=== PATIENT | female | born 1975 | race Caucasian/White ===

== ENCOUNTER 2017-10-19 04:39 | Emergency (ER) | payer BC, SELFPAY ==
[~2017-10-19] VITALS: Ht 152.4 cm; Wt 40.3 kg
[2017-10-19] MEDS ORDERED: MAALOX/HYOSCYAMINE/LIDOCAINE 45 ML BTL PO ONE (05:30)
[2017-10-19] MEDS ORDERED: SODIUM CHLORIDE FLUSH 10ML SYR IVF ONE (05:30)
[2017-10-19] MEDS ORDERED: SODIUM CHLORIDE 0.9% 1,000ML IVBOLUS ONE (05:30)
[2017-10-19] MEDS ORDERED: ONDANSETRON ODT 4 MG PO ONE (05:30)
[2017-10-19] MEDS ORDERED: FAMOTIDINE 20 MG/2 ML IVPush ONE (05:30)
[2017-10-19 06:00] LABS: ALBUMIN 3.9 g/dL (3.4-5.0); ANION GAP 4 mmol/L (5-15); CALCIUM 8.9 mg/dL (8.5-10.1); CHLORIDE 110 mmol/L (98-107); CREATININE 0.77 mg/dL (0.55-1.02)
[2017-10-19 06:08] LABS: BASOPHILS # (AUTO) 0.02 x10^3/uL (0-0.1); BASOPHILS % (AUTO) 0 % (0-1); EOSINOPHILS # (AUTO) 0.12 x10^3/uL (0-0.4); EOSINOPHILS % (AUTO) 1 % (1-7); LYMPHOCYTES # (AUTO) 1.09 x10^3/uL (1-3.4); LYMPHOCYTES % (AUTO) 10 % (22-44); MD NO; MEAN CORPUSCULAR HEMOGLOBIN 31.1 pg (27.0-34.8); MEAN CORPUSCULAR HGB CONC 33.5 g/dL (32.4-35.8); MEAN CORPUSCULAR VOLUME 92.8 fL (80-100); MEAN PLATELET VOLUME 11.3 fL (7.4-10.4); MONOCYTES # (AUTO) 0.83 x10^3/uL (0.2-0.8); MONOCYTES % (AUTO) 8 % (2-9); NEUTROPHILS # (AUTO) 8.47 x10^3/uL (1.8-6.8); NEUTROPHILS % (AUTO) 81 % (42-75); PLATELET COUNT 178 x10^3/uL (130-400); RED CELL DISTRIBUTION WIDTH 13.5 % (9.6-15.2)
[2017-10-19] MEDS ORDERED: ONDANSETRON ODT 4 MG ONE (06:09)
[2017-10-19] MEDS ORDERED: FAMOTIDINE 20 MG/2 ML ONE (06:09)
[2017-10-19] MEDS ORDERED: MAALOX/HYOSCYAMINE/LIDOCAINE 45 ML BTL ONE (06:09)
[2017-10-19 07:59] LABS: MICROSCOPIC INDICATED
[2017-10-19 08:07] VITALS: BP 108/62
[2017-10-19 08:10] LABS: CULTURE INDICATED? NO
== END 2017-10-19 08:09 | disposition home or self-care (01) ==
LOC: ED 08:05
DX: N94.4 Primary dysmenorrhea (principal); Z88.0 Allergy status to penicillin
CPT/HCPCS: 36415; 76830; 80048; 81001; 82040; 84703; 85025; 99285